=== PATIENT | female | born 1990 | race African-American/Black ===

== ENCOUNTER 2016-09-28 11:53 | Emergency (ER) | payer MEDICAID ==
[2016-09-28 13:46] LABS: BASOPHILS 0.3 % (0-2); EOSINOPHILS 2.3 % (0-7); HEMOGLOBIN 13.8 g/dL (12-16); IMMATURE GRANULOCYTES 0.4 % (0-5); LYMPHOCYTES 17.2 % (15-50); MCH 30.9 pg (26.0-34.0); MCHC 33.7 g/dL (31.0-37.0); MCV 91.7 fL (80.0-100.0); MEAN PLATELET VOLUME 10.5 fL (7.4-10.4); MONOCYTES 8.9 % (2-11); NEUTROPHILS 70.9 % (40-80); PLATELET COUNT 271 10x3/uL (130-400); RBC 4.47 10x6/uL (4.00-5.40); RDW 13.6 % (11.5-14.5); WBC 12.2 10x3/uL (4.8-10.8)
[2016-09-28 14:14] LABS: APPEARANCE CLEAR (CLEAR); BILIRUBIN NEGATIVE (NEGATIVE); COLOR YELLOW (YELLOW); GLUCOSE NEGATIVE (NEGATIVE); KETONE NEGATIVE (NEGATIVE); LEUKOCYTE ESTERASE TRACE (NEGATIVE); NITRITE NEGATIVE (NEGATIVE); PROTEIN NEGATIVE (NEGATIVE); SPECIFIC GRAVITY 1.015 (1.005-1.020); UROBILINOGEN NORMAL (NORMAL)
[2016-09-28 14:15] LABS: BACTERIA FEW /hpf (NONE SEEN); EPITHELIAL CELLS 0-5 /hpf (0-5); MUCUS >1+ /lpf (NONE SEEN); WHITE CELLS - URINE 0-5 /hpf (0-5)
== END 2016-09-28 14:48 | disposition left against medical advice (07) ==
LOC: D.ER 11:53
PROVIDERS: Emergency Medicine
DX: R09.89 Other specified symptoms and signs involving the circulatory and respiratory systems (principal); I10 Essential (primary) hypertension

== ENCOUNTER 2017-06-23 08:46 | Emergency (ER) | payer MEDICAID ==
[2017-06-23 09:25] LABS: HCG URINE NEGATIVE (NEGATIVE)
[2017-06-23 09:30] LABS: APPEARANCE HAZY (CLEAR); BILIRUBIN NEGATIVE (NEGATIVE); COLOR YELLOW (YELLOW); GLUCOSE NEGATIVE (NEGATIVE); KETONE NEGATIVE (NEGATIVE); NITRITE NEGATIVE (NEGATIVE); PROTEIN NEGATIVE (NEGATIVE); SPECIFIC GRAVITY 1.015 (1.005-1.020); UROBILINOGEN NORMAL (NORMAL)
[2017-06-23 09:33] LABS: BACTERIA FEW /hpf (NONE SEEN); EPITHELIAL CELLS 0-5 /hpf (0-5); RED CELLS - URINE 0-5 /hpf (0-5)
== END 2017-06-23 11:55 | disposition home or self-care (01) ==
LOC: D.ER 08:46
PROVIDERS: Family Medicine
DX: N76.0 Acute vaginitis (principal); B96.89 Other specified bacterial agents as the cause of diseases classified elsewhere; I10 Essential (primary) hypertension

== ENCOUNTER 2019-05-08 23:46 | Emergency (ER) | payer SELFPAY ==
[~2019-05-08] VITALS: Ht 172.7 cm; Wt 77.3 kg
[2019-05-08 23:48] VITALS: Ht 172.7 cm; Wt 77.3 kg
[2019-05-08] MEDS ORDERED: PRENATAL (23:50)
[2019-05-08] MEDS ORDERED: NORMODYNE / TR100 MG PO (23:56)
[2019-05-09 00:20] LABS: BASOPHILS 0.2 % (0-2); EOSINOPHILS 1.9 % (0-7); HEMOGLOBIN 12.1 g/dL (12-16); IMMATURE GRANULOCYTES 0.7 % (0-5); LYMPHOCYTES 14.2 % (15-50); MCH 30.9 pg (26.0-34.0); MCHC 33.6 g/dL (31.0-37.0); MCV 92.1 fL (80.0-100.0); MEAN PLATELET VOLUME 9.8 fL (7.4-10.4); MONOCYTES 5.2 % (2-11); NEUTROPHILS 77.8 % (40-80); PLATELET COUNT 301 10x3/uL (130-400); RBC 3.91 10x6/uL (4.00-5.40); WBC 17.6 10x3/uL (4.8-10.8)
[2019-05-09 00:48] LABS: ALBUMIN 2.7 g/dL (3.4-5.0); ALKALINE PHOSPHATASE 60 U/L (46-116); ALT (SGPT) 29 U/L (10-68); BILIRUBIN - TOTAL 0.37 mg/dL (0.2-1.3); CALC OSMOLALITY 273 mosm/kg (275-300); CALCIUM 8.8 mg/dL (8.5-10.1); CARBON DIOXIDE 25.3 mmol/L (21.0-32.0); CHLORIDE - SERUM 104 mmol/L (98-107); CREATININE - SERUM 0.6 mg/dL (0.6-1.3); GLUCOSE 96 mg/dL (74-106); POTASSIUM - SERUM 3.1 mmol/L (3.5-5.1); PROTEIN - SERUM 7.1 g/dL (6.4-8.2); SODIUM 138 mmol/L (136-145); UREA NITROGEN 7 mg/dL (7-18); eGFR NON AFRICAN AMERICAN > 90 mL/min (90-120)
[2019-05-09 00:50] LABS: APPEARANCE CLEAR (CLEAR); BILIRUBIN NEGATIVE (NEGATIVE); COLOR YELLOW (YELLOW); GLUCOSE NEGATIVE (NEGATIVE); KETONE SMALL mg/dL (NEGATIVE); NITRITE NEGATIVE (NEGATIVE); PROTEIN NEGATIVE (NEGATIVE); RED CELLS - URINE 0-5 /hpf (0-5); SPECIFIC GRAVITY 1.015 (1.005-1.020); UROBILINOGEN NORMAL (NORMAL); WHITE CELLS - URINE 0-5 /hpf (NEGATIVE)
[2019-05-09] MEDS ORDERED: GUAIFEN-CODEINE10 ML PO (00:57)
[2019-05-09] MEDS ORDERED: K-DUR20 MEQ PO (01:18)
[2019-05-09 01:57] VITALS: BP 123/82
== END 2019-05-09 01:20 | disposition home or self-care (01) ==
LOC: D.ER 23:46
PROVIDERS: Emergency Medicine
DX: O16.2 Unspecified maternal hypertension, second trimester (principal); Z3A.00 Weeks of gestation of pregnancy not specified; J06.9 Acute upper respiratory infection, unspecified; R05 Cough; E87.6 Hypokalemia

== ENCOUNTER 2019-07-30 14:02 | Outpatient (CLI) | payer MEDICAID ==
[2019-05-08 23:48] VITALS: BMI 25.9
[~2019-07-30 14:02] MED LIST: GUAIFEN-CODEINE10 ML PO; K-DUR20 MEQ PO; NORMODYNE / TR100 MG PO; PRENATAL
== END 2019-07-30 16:20 | disposition home or self-care (01) ==
LOC: D.LDO 14:02
PROVIDERS: ATTEND Student in an Organized Health Care Education/Training Program
DX: O16.9 Unspecified maternal hypertension, unspecified trimester (principal)

== ENCOUNTER 2019-08-03 08:39 | Outpatient (CLI) | payer MEDICAID ==
[2019-05-08 23:48] VITALS: BMI 25.9
[2019-08-03 09:41] LABS: BILIRUBIN NEGATIVE (NEGATIVE); GLUCOSE NEGATIVE (NEGATIVE); KETONE NEGATIVE (NEGATIVE); NITRITE NEGATIVE (NEGATIVE); UROBILINOGEN NORMAL (NORMAL)
[2019-08-03 09:42] LABS: BACTERIA MODERATE /hpf (NEGATIVE); EPITHELIAL CELLS 0-5 /hpf (0-5); RED CELLS - URINE 0-5 /hpf (0-5)
== END 2019-08-03 11:30 | disposition home or self-care (01) ==
LOC: D.LDO 08:39
PROVIDERS: ATTEND Student in an Organized Health Care Education/Training Program
DX: O26.893 Other specified pregnancy related conditions, third trimester (principal); R03.0 Elevated blood-pressure reading, without diagnosis of hypertension; Z3A.34 34 weeks gestation of pregnancy

== ENCOUNTER 2019-08-06 08:40 | Outpatient (CLI) | payer MEDICAID ==
[2019-05-08 23:48] VITALS: BMI 25.9
== END 2019-08-06 09:20 | disposition home or self-care (01) ==
LOC: D.LDO 08:40
PROVIDERS: ATTEND Student in an Organized Health Care Education/Training Program
DX: O16.9 Unspecified maternal hypertension, unspecified trimester (principal)

== ENCOUNTER → 2019-08-10 11:29 | Outpatient (CLI) | payer MEDICAID ==
[2019-05-08 23:48] VITALS: BMI 25.9
== END | disposition home or self-care (01) ==
LOC: D.LDO 11:29
PROVIDERS: ATTEND Student in an Organized Health Care Education/Training Program
DX: O10.919 Unspecified pre-existing hypertension complicating pregnancy, unspecified trimester (principal)

== ENCOUNTER → 2019-08-12 14:18 | Outpatient (CLI) | payer MEDICAID ==
[2019-05-08 23:48] VITALS: BMI 25.9
[2019-08-12 15:18] LABS: BILIRUBIN NEGATIVE (NEGATIVE); GLUCOSE NEGATIVE (NEGATIVE); KETONE NEGATIVE (NEGATIVE); NITRITE NEGATIVE (NEGATIVE); SPECIFIC GRAVITY 1.015 (1.005-1.020); UDS - AMPHET NEGATIVE QUAL (NEGATIVE); UDS - BARB NEGATIVE QUAL (NEGATIVE); UDS - BENZO NEGATIVE QUAL (NEGATIVE); UDS - COCAINE NEGATIVE QUAL (NEGATIVE); UDS - OPIATE NEGATIVE QUAL (NEGATIVE); UDS - PCP NEGATIVE QUAL (NEGATIVE); UDS - THC NEGATIVE QUAL (NEGATIVE); UROBILINOGEN NORMAL (NORMAL)
[2019-08-12 15:27] LABS: BACTERIA MODERATE /hpf (NEGATIVE); EPITHELIAL CELLS 0-5 /hpf (0-5); RED CELLS - URINE OCC /hpf (0-5); WHITE CELLS - URINE 0-5 /hpf (NEGATIVE)
== END | disposition home or self-care (01) ==
LOC: D.LDO 14:18
PROVIDERS: Obstetrics & Gynecology; ATTEND Student in an Organized Health Care Education/Training Program
DX: O47.9 False labor, unspecified (principal)

== ENCOUNTER 2019-08-21 13:13 | Outpatient (CLI) | payer MEDICAID ==
[2019-05-08 23:48] VITALS: BMI 25.9
== END 2019-08-21 13:52 | disposition home or self-care (01) ==
LOC: D.LDO 13:13
PROVIDERS: ATTEND Student in an Organized Health Care Education/Training Program
DX: O16.9 Unspecified maternal hypertension, unspecified trimester (principal)

== ENCOUNTER 2019-08-24 12:24 | Outpatient (CLI) | payer MEDICAID ==
[2019-05-08 23:48] VITALS: BMI 25.9
== END 2019-08-24 13:05 | disposition home or self-care (01) ==
LOC: D.LDO 12:24
PROVIDERS: ATTEND Student in an Organized Health Care Education/Training Program
DX: O10.919 Unspecified pre-existing hypertension complicating pregnancy, unspecified trimester (principal)

== ENCOUNTER 2019-08-27 09:07 | Outpatient (CLI) | payer MEDICAID ==
[2019-05-08 23:48] VITALS: BMI 25.9
== END 2019-08-27 09:23 | disposition home or self-care (01) ==
LOC: D.LDO 09:07
PROVIDERS: ATTEND Student in an Organized Health Care Education/Training Program
DX: O26.893 Other specified pregnancy related conditions, third trimester (principal); Z3A.37 37 weeks gestation of pregnancy

== ENCOUNTER 2019-08-31 09:55 | Outpatient (CLI) | payer MEDICAID ==
[2019-05-08 23:48] VITALS: BMI 25.9
== END 2019-08-31 15:27 | disposition home or self-care (01) ==
LOC: D.LDO 09:55
PROVIDERS: ATTEND Obstetrics & Gynecology
DX: O16.3 Unspecified maternal hypertension, third trimester (principal); Z3A.38 38 weeks gestation of pregnancy

== ENCOUNTER 2019-09-03 11:48 | Outpatient (CLI) | payer MEDICAID ==
[2019-05-08 23:48] VITALS: BMI 25.9
[2019-09-07 06:01] VITALS: BMI 28.9
== END 2019-09-03 12:24 | disposition home or self-care (01) ==
LOC: D.LDO 11:48
PROVIDERS: ATTEND Student in an Organized Health Care Education/Training Program
DX: O16.3 Unspecified maternal hypertension, third trimester (principal); Z3A.38 38 weeks gestation of pregnancy

== ENCOUNTER 2019-09-07 05:22 | Inpatient (IN) | payer MEDICAID ==
[~2019-09-07] VITALS: Ht 172.7 cm; Wt 86.4 kg
[2019-09-07 06:01] VITALS: BP 136/86; Ht 172.7 cm; Wt 86.4 kg
[2019-09-07 06:37] LABS: UDS - AMPHET NEGATIVE QUAL (NEGATIVE); UDS - BARB NEGATIVE QUAL (NEGATIVE); UDS - BENZO NEGATIVE QUAL (NEGATIVE); UDS - COCAINE NEGATIVE QUAL (NEGATIVE); UDS - OPIATE NEGATIVE QUAL (NEGATIVE); UDS - PCP NEGATIVE QUAL (NEGATIVE); UDS - THC NEGATIVE QUAL (NEGATIVE)
[2019-09-07 06:45] LABS: HEMATOCRIT 35.7 % (36.0-48.0); HEMOGLOBIN 11.6 g/dL (12-16); MCHC 32.5 g/dL (31.0-37.0); MCV 92.2 fL (80.0-100.0); MEAN PLATELET VOLUME 9.5 fL (7.4-10.4); RBC 3.87 10x6/uL (4.00-5.40); RDW 13.7 % (11.5-14.5); WBC 23.1 10x3/uL (4.8-10.8)
[2019-09-07 11:30] LABS: SPECIFIC GRAVITY 1.015 (1.005-1.020)
[2019-09-07 11:31] LABS: BACTERIA MODERATE /hpf (NEGATIVE); BILIRUBIN NEGATIVE (NEGATIVE); EPITHELIAL CELLS 0-5 /hpf (0-5); GLUCOSE NEGATIVE (NEGATIVE); KETONE NEGATIVE (NEGATIVE); NITRITE NEGATIVE (NEGATIVE); UROBILINOGEN NORMAL (NORMAL)
--- NOTE | 2019-09-07 21:12 | NUR ---
TRANSFERED TO POST ROOM, 1278. ORIENTED TO ROOM AND SETTLED IN, BABY ITEMS AT BEDSIDE, BABY PLACED IN MOTHERS ARMS, SLEEPING, PATIENT DENIES NEEDS, DENIES PAIN OR DISCOMFORTS
--- NOTE | 2019-09-07 22:28 | NUR ---
c/o cramping, motrin 600mg po given for discomfort
--- NOTE | 2019-09-07 22:58 | NUR ---
up to bathroom, voiding without difficulty, voiding #2 since delivery
--- NOTE | 2019-09-08 00:30 | NUR ---
sleeping, request baby be taken to nursery for bath and feeding. IV saline locked, no redness, no tenderness, flushes easily. FF/ML/U LOCHIA SM RUBRA, Denies needs
[2019-09-08 00:36] VITALS: BP 121/73
--- NOTE | 2019-09-08 01:25 | NUR ---
Resting with eyes closed, ST up x 2 and call light in reach
--- NOTE | 2019-09-08 02:25 | NUR ---
up to bathroom, jd care, pads and under pad changed
--- NOTE | 2019-09-08 03:30 | NUR ---
resting with eyes closed, ST up x2 and call light in reach, night light on
[2019-09-08 04:36] VITALS: BP 141/84
--- NOTE | 2019-09-08 04:37 | NUR ---
feeding baby, denies needs, denies discomfort at this time, assisted with bed controls
--- NOTE | 2019-09-08 06:04 | NUR ---
up holding baby, talking to baby and bonding well. voiding without difficulty, fundus firm, midline at U and small rubra lochia, Denies needs
[2019-09-08 06:08] LABS: RAPID PLASMA REAGIN Non Reactive (Non Reactive)
[2019-09-08 07:01] LABS: HEMATOCRIT 35.7 % (36.0-48.0); HEMOGLOBIN 11.7 g/dL (12-16); MCH 30.4 pg (26.0-34.0); MCHC 32.8 g/dL (31.0-37.0); MCV 92.7 fL (80.0-100.0); MEAN PLATELET VOLUME 9.5 fL (7.4-10.4); PLATELET COUNT 308 10x3/uL (130-400); RBC 3.85 10x6/uL (4.00-5.40); RDW 13.7 % (11.5-14.5); WBC 21.5 10x3/uL (4.8-10.8)
[2019-09-08 07:09] VITALS: BP 136/86
--- NOTE | 2019-09-08 07:31 | NUR ---
ASSESSMENT DONE. SITTING UP IN BED HOLDING . DENIES NEEDS- DENIES PAIN. STATES WOULD LIKE DR SPENCER. FUNDUS UU/FIRM- SCANT LOCHIA NOTED ON PAD.
--- NOTE | 2019-09-08 08:30 | NUR ---
DR. MAYFIELD ON UNIT, TO PT'S ROOM FOR AM ROUNDING.
--- NOTE | 2019-09-08 08:40 | NUR ---
PT CALLS OUT LOG SAWYER LIGHT, TO ROOM, PT IS SITTING UP IN THE BED, HOLDING INFANT, FACETIMING. PT REQUESTS THAT DIMMER LIGHTS BE TURNED BRIGHTER, DONE. DENIES ALL OTHER NEEDS. SRUP X2, CALL LIGHT AND PHONE WITHIN REACH.
--- NOTE | 2019-09-08 10:15 | NUR ---
PT CALLS OUT SUPERVISOR TYPE PHOTOGRAPHY LIGHT, TO ROOM. PT IS SITTING UP IN THE BED, TENDING TO INFANT. PT STATES "I CAN'T WORK WITH THIS THING IN MY HAND, CAN YOU TAKE THIS IV OUT?" IV TO LEFT HAND DC'D WITH CATH INTACT. PT ANEESH WELL. SRUP X2, CALL LIGHT AND PHONE WITHIN REACH. PT REQUESTS INFORMATION ON BABY'S DISCHARGE PLANNING, PHONE # TO NSY ([phone]) PROVIDED TO PT. PT DENIES ALL OTHER NEEDS AT THIS TIME.
[2019-09-08 11:00] LABS: LYMPHOCYTES 13 % (15-50); MONOCYTES 5 % (2-11); NEUTROPHILS 80 % (40-80); PLATELET ESTIMATE NORMAL; ROULEAUX OCC
[2019-09-08 14:04] VITALS: BP 132/69
--- NOTE | 2019-09-08 14:07 | NUR ---
rings call light- requesting medication for cramping -rates pain a 5 on scale of 0-10.
--- NOTE | 2019-09-08 15:50 | NUR ---
dr acosta calls unit. states that pt will be able to have btl in 6 weeks. also states that pt may room in or stay to be discharged home with infant tomorrow. pt states that she wants to stay as inpatient and discharge home with . pt states that cramping is better.
--- NOTE | 2019-09-08 18:40 | NUR ---
pt rings call light- requesting something for cramps besides motrin. phoned dr birmingham- new orders received.
--- NOTE | 2019-09-08 19:03 | NUR ---
TORADOL 30 MG IM IN LEFT GM, TOLERATED WELL RATES PAIN 10/10 FOR PERINEAL DISCOMFORT AND CRAMPING
[2019-09-08 19:45] VITALS: BP 136/90
--- NOTE | 2019-09-08 20:30 | NUR ---
SANDWICH TRAY PROVIDED WITH FRUIT AND PUDDING, BABY SWADDLED AND PLACED IN CRIB AT MOTHERS BEDSIDE, DENIES NEEDS, SR UP X2 AND CALL LIGHT IN REACH, DENIES NEEDS
--- NOTE | 2019-09-08 21:15 | NUR ---
SITTIN UP IN BED FEEDING BABY AND WATCHING TV, DENIES NEEDS, CALL LIGHT IN REACH ST UP X2
--- NOTE | 2019-09-08 22:04 | NUR ---
EATING BEDTIME SNACK, DENIES NEEDS, FUNDUS FIRM, ML, -1 LOCHIA SMALL RUBRA, RIGOBERTO SUPPLIES REPLENISHED
--- NOTE | 2019-09-08 23:01 | NUR ---
AWAKE SITTING UP IN BED WATCHING PROGRAM ON PHONE, DENIES NEEDS
--- NOTE | 2019-09-09 00:05 | NUR ---
WATCHING TV, BABY IN CRIB AT BEDSIDE, DENIES NEEDS
--- NOTE | 2019-09-09 01:00 | NUR ---
AWAKE FEEDING BABY, SCHEDULED TORADOL GIVEN FOR PAIN SCALE 5/10 CALL LIGHT IN REACH, DENIES NEEDS AT THIS TIME
[2019-09-09 01:03] VITALS: BP 137/87
--- NOTE | 2019-09-09 02:01 | NUR ---
RESTING WITH MASK COVERING EYES, NIGHT LIGHT ON, SR UP X2 AND CALL LIGHT IN REACH
--- NOTE | 2019-09-09 03:05 | NUR ---
RESTING, DENIES NEEDS
--- NOTE | 2019-09-09 04:00 | NUR ---
SLEEPING, SR UP X2 AND CALL LIGHT IN REACH
--- NOTE | 2019-09-09 05:05 | NUR ---
resting, denies needs
--- NOTE | 2019-09-09 06:00 | NUR ---
RESTING WELL, TORADOL HAS CONTROLLED PAIN THIS EVENING, BONDING WELL WITH BABY, NO SIGNS OF DISTRESS
--- NOTE | 2019-09-09 06:45 | NUR ---
ICE WATER PROVIDED PER PT REQUEST.
[2019-09-09 07:26] VITALS: BP 138/87
--- NOTE | 2019-09-09 07:29 | NUR ---
assessment done. toradol given. sitting up in bed holding infant. states that has pain "in my butt" when coughs. denies cramping at this time. states has shower supplies. denies needs.
--- NOTE | 2019-09-09 09:00 | NUR ---
resting in bed- no requests.
--- NOTE | 2019-09-09 11:00 | NUR ---
pt states will shower when is ready- denies needs.
--- NOTE | 2019-09-09 13:05 | NUR ---
report to daphne estrada rn.
--- NOTE | 2019-09-09 14:18 | NUR ---
PT UP TO SHOWER, PROVIDED WITH REQUESTED ITEMS AND TOWELS. UNDERSTANDS EMERGENCY CALL LIGHT IF ASSISTANCE/NURSE IS NEEDED.
--- NOTE | 2019-09-09 17:01 | NUR ---
VERBAL AND WRITTEN DISCHARGE GONE OVER BY Deyanira BARTON RN. PT UNDERSTANDS SHE CAN TAKE IBUPROFEN FOR POST DELIVERY PAIN CONTROL. DENIES ANY QUESTIONS OR CONCERNS AT THIS TIME. AWAITING DISCHARGE AT THIS TIME.
--- NOTE | 2019-09-09 17:45 | NUR ---
PT TAKEN OUT WITH INFANT SECURED IN CARRIER HOME WITH FAMILY BY PRIVATE CAR.
== END 2019-09-09 17:45 | disposition home or self-care (01) | DRG 807 ==
LOC: D.LD 05:22
PROVIDERS: ADMIT Student in an Organized Health Care Education/Training Program; ATTEND Student in an Organized Health Care Education/Training Program
PROC: 10E0XZZ Delivery of Products of Conception, External Approach (ICD-10-PCS; principal; 2019-09-07)
DX: O99.824 Streptococcus B carrier state complicating childbirth (principal); Z37.0 Single live birth; Z3A.39 39 weeks gestation of pregnancy; O10.92 Unspecified pre-existing hypertension complicating childbirth

== ENCOUNTER 2020-01-21 09:53 | Emergency (ER) | payer MEDICAID ==
[~2020-01-21] VITALS: Ht 172.7 cm; Wt 86.4 kg
[2020-01-21 10:03] VITALS: Ht 172.7 cm; Wt 86.4 kg
[2020-01-21 10:41] LABS: HCG URINE POSITIVE (NEGATIVE)
[2020-01-21] MEDS ORDERED: FLAGYL500 MG PO (10:48)
[2020-01-21 10:59] LABS: BACTERIA MODERATE /hpf (NEGATIVE); BILIRUBIN NEGATIVE (NEGATIVE); EPITHELIAL CELLS 0-5 /hpf (0-5); KETONE NEGATIVE (NEGATIVE); NITRITE NEGATIVE (NEGATIVE); RED CELLS - URINE 0-5 /hpf (0-5); UROBILINOGEN NORMAL (NORMAL)
[2020-01-21] MEDS ORDERED: MACROBID100 MG PO (11:01)
[2020-01-21 11:28] VITALS: BP 124/62
== END 2020-01-21 11:28 | disposition home or self-care (01) ==
LOC: D.ER 09:53
PROVIDERS: Emergency Medicine
DX: O23.40 Unspecified infection of urinary tract in pregnancy, unspecified trimester (principal); Z3A.00 Weeks of gestation of pregnancy not specified; N76.0 Acute vaginitis; Z20.2 Contact with and (suspected) exposure to infections with a predominantly sexual mode of transmission; A59.01 Trichomonal vulvovaginitis; O16.9 Unspecified maternal hypertension, unspecified trimester

== ENCOUNTER 2020-07-21 10:10 | Outpatient (CLI) | payer MEDICAID ==
[2020-01-21 10:03] VITALS: BMI 28.9
[~2020-07-21 10:10] MED LIST changes: +FLAGYL500 MG PO; +MACROBID100 MG PO
[2020-07-21 11:42] LABS: HEMATOCRIT 36.2 % (36.0-48.0); HEMOGLOBIN 12.1 g/dL (12-16); LYMPHOCYTES 19.5 % (15-50); MCH 30.8 pg (26.0-34.0); MCHC 33.4 g/dL (31.0-37.0); MCV 92.1 fL (80.0-100.0); MEAN PLATELET VOLUME 9.4 fL (7.4-10.4); NEUTROPHILS 75.9 % (40-80); PLATELET COUNT 299 10x3/uL (130-400); RBC 3.93 10x6/uL (4.00-5.40); RDW 12.8 % (11.5-14.5); WBC 16.6 10x3/uL (4.8-10.8)
[2020-07-21 11:54] LABS: BILIRUBIN NEGATIVE (NEGATIVE); CREATININE - URINE 209.2 mg/dL (30-125); KETONE NEGATIVE (NEGATIVE); NITRITE NEGATIVE (NEGATIVE); PRO/CRE RATIO URINE 0.1 mg/g; PROTEIN - URINE 30.4 mg/dL (0.0-11.9); UROBILINOGEN NORMAL mg/dL (< 2); WHITE CELLS - URINE 0-5 HPF (0-4)
[2020-07-21 11:55] LABS: BACTERIA FEW HPF (NONE SEEN); SQUAMOUS EPITHELIAL 0-5 HPF (0-4)
[2020-07-21 12:11] LABS: CALC OSMOLALITY 272 mosm/kg (275-300); CALCIUM 8.6 mg/dL (8.5-10.1); CARBON DIOXIDE 26.9 mmol/L (21.0-32.0); CHLORIDE - SERUM 103 mmol/L (98-107); CREATININE - SERUM 0.7 mg/dL (0.6-1.3); GLUCOSE 77 mg/dL (74-106); SODIUM 138 mmol/L (136-145); UREA NITROGEN 6 mg/dL (7-18); eGFR NON AFRICAN AMERICAN > 90 mL/min (90-120)
[2020-07-21 12:15] LABS: POTASSIUM - SERUM 2.9 mmol/L (3.5-5.1)
[2020-07-21 12:18] LABS: ALBUMIN 2.7 g/dL (3.4-5.0); ALKALINE PHOSPHATASE 91 U/L (30-120); ALT (SGPT) 23 U/L (10-68); BILIRUBIN - TOTAL 0.33 mg/dL (0.2-1.3); LDH 174 U/L (81-234); URIC ACID 3.5 mg/dL (2.6-7.2)
[2020-07-22 09:47] LABS: MAGNESIUM - SERUM 1.5 mg/dL (1.8-2.4)
[2020-07-22 09:49] LABS: POTASSIUM - SERUM 2.7 mmol/L (3.5-5.1)
== END 2020-07-22 16:45 | disposition home or self-care (01) ==
LOC: D.LDO 10:10 → D.LD 22:07 → D.LDO 07-22 16:45
PROVIDERS: ATTEND Student in an Organized Health Care Education/Training Program
DX: O36.5990 Maternal care for other known or suspected poor fetal growth, unspecified trimester, not applicable or unspecified (principal)

== ENCOUNTER 2020-08-05 06:24 | Inpatient (IN) | payer MEDICAID ==
[2020-08-05] VITALS (8 sets, daily range): BP systolic 137–177; BP diastolic 81–107; BMI 40.4
[~2020-08-05] VITALS: Ht 142.2 cm; Wt 81.6 kg
[2020-08-05 08:53] LABS: UDS - AMPHET NEGATIVE QUAL (NEGATIVE); UDS - BARB NEGATIVE QUAL (NEGATIVE); UDS - BENZO NEGATIVE QUAL (NEGATIVE); UDS - COCAINE NEGATIVE QUAL (NEGATIVE); UDS - OPIATE NEGATIVE QUAL (NEGATIVE); UDS - PCP NEGATIVE QUAL (NEGATIVE); UDS - THC POSITIVE QUAL (NEGATIVE)
[2020-08-05 09:57] LABS: HEMATOCRIT 35.6 % (36.0-48.0); HEMOGLOBIN 11.8 g/dL (12-16); MCH 30.5 pg (26.0-34.0); MCHC 33.1 g/dL (31.0-37.0); MEAN PLATELET VOLUME 10.2 fL (7.4-10.4); RBC 3.87 10x6/uL (4.00-5.40); RDW 13.5 % (11.5-14.5); WBC 13.1 10x3/uL (4.8-10.8)
--- NOTE | 2020-08-05 19:03 | NUR ---
TRUE STAT SECTION. PATIENT ALREADY IN ROOM WHEN I ARRIVED. COUNT NOT ABLE TO BE OBTAINED OTHER THAN SOFT COUNT OF LAPS. FINAL X RAY TAKEN CONFIRMED BY PHYSICIAN TO BE CLEAR OF ANY SURGICAL ITEMS LEFT BEHIND. LABOR AND CONTACT LENS MOLDER AGUSTO GONZALEZ HANDLED CORD BLOOD. DONNELL VILLA HANDLED SPECIMENS. STERILITY IN QUESTION DUE TO DANGER OF LOSS OF BABY AND MOM. EMERGENCY HYSTERECTOMY ESTABLISHED BY PHYSICIAN TO BE NECESSARY TO SAVE MOTHERS LIFE. DR LAWRENCE AND DR MCDONALD ALSO CALLED INTO ASSIST.
[2020-08-05 19:12] LABS: BASOPHILS 0.1 % (0-2); EOSINOPHILS 1.4 % (0-7); HEMATOCRIT 28.8 % (36.0-48.0); HEMOGLOBIN 9.8 g/dL (12-16); IMMATURE GRANULOCYTES 0.5 % (0-5); LYMPHOCYTE ABS# 3.35 10x3/uL (1.18-3.74); LYMPHOCYTES 16.9 % (15-50); MCH 30.8 pg (26.0-34.0); MCV 90.6 fL (80.0-100.0); MEAN PLATELET VOLUME 9.9 fL (7.4-10.4); MONOCYTES 4.3 % (2-11); NEUTROPHIL ABS# 15.23 10x3/uL (1.56-6.13); NEUTROPHILS 76.8 % (40-80); RBC 3.18 10x6/uL (4.00-5.40); RDW 13.4 % (11.5-14.5)
[2020-08-05 19:13] LABS: PLATELET COUNT 195 10x3/uL (130-400); WBC 19.8 10x3/uL (4.8-10.8)
[2020-08-05 19:15] LABS: ALBUMIN 1.4 g/dL (3.4-5.0); ALKALINE PHOSPHATASE 56 U/L (30-120); ALT (SGPT) 13 U/L (10-68); BILIRUBIN - TOTAL 0.54 mg/dL (0.2-1.3); CALC OSMOLALITY 271 mosm/kg (275-300); CARBON DIOXIDE 18.7 mmol/L (21.0-32.0); CHLORIDE - SERUM 112 mmol/L (98-107); CREATININE - SERUM 0.4 mg/dL (0.6-1.3); GLUCOSE 79 mg/dL (74-106); POTASSIUM - SERUM 3.1 mmol/L (3.5-5.1); PROTEIN - SERUM 3.8 g/dL (6.4-8.2); SODIUM 138 mmol/L (136-145); UREA NITROGEN 5 mg/dL (7-18); eGFR NON AFRICAN AMERICAN > 90 mL/min (90-120)
--- NOTE | 2020-08-05 19:20 | NUR ---
lab staff notified of critical calcium level of 6.0, reported to dr acosta who is at nursing' station, no new orders received at this time.
[2020-08-05 19:27] LABS: APTT 25.9 SECONDS (22.8-39.4); INR 1.21 (0.85-1.17); PROTIME 14.2 SECONDS (11.6-15.0)
--- NOTE | 2020-08-05 19:45 | NUR ---
PT. IN HIGH FOWLERS POSITION UPON ENTERING ROOM. 16 FR. CA CATH INTACT AND DRAINING APPROPRIATELY. ABDOMINAL DRESSING C/D/I OVER BIKINI LINE INCISION WITH BRETT. VITALS AND ASSESSMENT COMPLETED. SEE FLOWSHEET. PT. WITH 20 G. SALINE LOCK NOTED IN LEFT HAND AND 18 G. IV IN LEFT HAND INFUSING NS AT KVO. PLACED NS TO IVAC AT 75 ML/HR. CALCIUM GLUCONATE 1GM ON IVPB AT 25 ML/HR ORDERED TO INFUSE OVER 2 HOURS. PT. AWAKE, ALERT, AND ORIENTED X3. DISCUSSED PLAN OF CARE WITH PT. REGARDING MEDICATIONS ORDERED, LABS ORDERED, NPO OF RIGHT NOW AND CT OF ABDOMEN ORDERED WITH CONTRAST NOW. PT. REPORTS "IM TRYING TO DRINK IT BUT ITS GOD AWFUL AND I DON'T WANT TO GET SICK". INSTRUCTED PT. TO JUST SIP SLOWLY AT THIS TIME. SCD'S PLACED AND ON PER ORDERS. VERY LITTLE BLEEDING NOTED ON RIGOBERTO PAD. PT. UNABLE TO MOVE BILATERAL LOWER EXTREMITIES DUE TO EPIDURAL BOLUSED FOR STAT SECTION DUE TO PROLAPSED CORD. RESP. ARE EVEN AND UNLABORED. BREATH SOUNDS CLEAR AT THIS TIME. BOWEL SOUNDS HYPOACTIVE X 4 AND PT. REPORTS PASSING GAS. SIDE RAILS UP X 2. CALL LIGHT WITHIN REACH. PT. SHAKING UNCONTROLLABLY AND REPORTS "IM FREEZING". 2 MORE WARM BLANKETS PROVIDED. STILL UNABLE TO OBTAIN TEMP. AT THIS TIME. WILL CONT. TO MONITOR.
--- NOTE | 2020-08-05 20:20 | NUR ---
pt transferred to radiology for ct of abdomen via pt bed per radiology staff.
--- NOTE | 2020-08-05 20:43 | NUR ---
PT. BACK TO ROOM VIA BED FROM CT OF ABDOMEN.
--- NOTE | 2020-08-05 21:10 | NUR ---
LAB NOTIFIED OF TIMED LAB DRAW NEEDED PER MD ORDERS.
--- NOTE | 2020-08-05 21:25 | NUR ---
REPORT OF CT RESULTS CALLED TO DR. MAYFIELD.
--- NOTE | 2020-08-05 21:40 | NUR ---
PT C/O ITCHING OF LEFT HAND, NOTED HIVES SURROUNDING PIV SITE AND EXTENDING TO WRIST. HEALTH SPA MANAGER MORPHINE DISCONTINUED. Fab ANNE RN NOTIFIED DR MAYFIELD WHO GAVE ORDERS; DR MAYFIELD PHONES BACK AND SPEAKS TO THIS RN WITH ADDITIONAL ORDERS. -WILL GIVE BENADRYL 25MG SIVP DILUTED IN 10 ML NS TO LEFT HAND PIV SITE PER ORDERS RECEIVED.
--- NOTE | 2020-08-05 21:46 | NUR ---
BENADRYL 50 MG ADMINISTERED SIVP IN 9 MLS NORMAL SALINE THROUGH RIGHT HAND IV WITH NS BEING INFUSED AT 75 ML/HR.
[2020-08-05 22:11] LABS: BASOPHILS 0.2 % (0-2); EOSINOPHILS 0.7 % (0-7); HEMATOCRIT 32.3 % (36.0-48.0); HEMOGLOBIN 10.8 g/dL (12-16); IMMATURE GRANULOCYTES 0.4 % (0-5); LYMPHOCYTE ABS# 2.19 10x3/uL (1.18-3.74); LYMPHOCYTES 11.3 % (15-50); MCH 30.3 pg (26.0-34.0); MCHC 33.4 g/dL (31.0-37.0); MCV 90.7 fL (80.0-100.0); MEAN PLATELET VOLUME 9.7 fL (7.4-10.4); NEUTROPHIL ABS# 15.85 10x3/uL (1.56-6.13); NEUTROPHILS 81.4 % (40-80); PLATELET COUNT 199 10x3/uL (130-400); RBC 3.56 10x6/uL (4.00-5.40); RDW 13.6 % (11.5-14.5); WBC 19.4 10x3/uL (4.8-10.8)
[2020-08-05 22:23] LABS: APTT 26.2 SECONDS (22.8-39.4); INR 1.22 (0.85-1.17); PROTIME 14.3 SECONDS (11.6-15.0)
--- NOTE | 2020-08-05 22:30 | NUR ---
REPORT CALLED TO DR. MAYFIELD WITH LAB RESULTS. ORDERS REC.
--- NOTE | 2020-08-05 23:35 | NUR ---
PT. PROVIDED WITH CHICKEN BROTH REQUESTED. CA WITH 280 MLS OF DARK YELLOW URINE EMPTIED TO BAG FROM CHAMBER. PT. DOZES ON AND OFF WHILE SPEAKING WITH HER. GABAPENTIN 100 MG ADMINISTERED ORALLY PER MD ORDERS. PT. CONTINUES TO REPORT PAIN IS AT "10" ON 0-10 SCALE BUT IS SLEEPING UPON ENTERING ROOM. WILL CONT. TO MONITOR.
[2020-08-06 00:47] LABS: BASOPHILS 0.1 % (0-2); EOSINOPHILS 0.6 % (0-7); HEMOGLOBIN 10.9 g/dL (12-16); IMMATURE GRANULOCYTES 0.3 % (0-5); LYMPHOCYTE ABS# 2.67 10x3/uL (1.18-3.74); MCH 30.4 pg (26.0-34.0); MCHC 34.1 g/dL (31.0-37.0); MCV 89.1 fL (80.0-100.0); MEAN PLATELET VOLUME 9.2 fL (7.4-10.4); MONOCYTES 3.4 % (2-11); NEUTROPHIL ABS# 14.39 10x3/uL (1.56-6.13); NEUTROPHILS 80.6 % (40-80); PLATELET COUNT 187 10x3/uL (130-400); RBC 3.59 10x6/uL (4.00-5.40); RDW 13.7 % (11.5-14.5); WBC 17.8 10x3/uL (4.8-10.8)
[2020-08-06 00:49] VITALS: BP 150/85
[2020-08-06 01:00] LABS: APTT 25.5 SECONDS (22.8-39.4); INR 1.16 (0.85-1.17); PROTIME 13.7 SECONDS (11.6-15.0)
--- NOTE | 2020-08-06 02:10 | NUR ---
PT. APPEARS TO BE RESTING COMFORTABLY. RESP. ARE EVEN AND UNLABORED. NO SIGNS OF DISTRESS NOTED. PT. NOT DISTURBED AT THIS TIME.
--- NOTE | 2020-08-06 04:06 | NUR ---
NEW BAG OF 0.9% NORMAL SALINE HUNG AND INFUSING AT 50 ML/HR. FLAGYL 500 MG HUNG IVPB TO RIGHT HAND IV CATH AT 100 ML/HR PER MD ORDERS. THIS IS THE 2ND DOSE OF A TOTAL OF 6 TO BE INFUSED. PT. REPORTS PAIN AT "10" ON 0-10 SCALE.
[2020-08-06 04:10] VITALS: BP 147/90
--- NOTE | 2020-08-06 05:56 | NUR ---
PT. REPORTS PAIN IS AT "5" ON 0-10 SCALE. PT. INQUIRES WHAT SHE IS TAKING FOR PAIN MEDICATION. INSTRUCTED PT. THAT SHE IS TAKING TORADOL 30 MG IV AND TRAMADOL 50 MG ORALLY. PT. INQUIRES "I DONT THINK THATS HELPING VERY MUCH". EXPLAINED TO PT. THAT I AM SURE THAT DR. MAYFIELD ORDERED THIS BECAUSE IT IS NOT AN OPIATE AND AFTER HER HIVES ON HER HAND LAST NIGHT SHE MAY BE LEARY TO TRY ANY OF THE OTHERS THAT ARE OPIATES. PT. INQUIRES REGARDING HYDROCONE AND REPORTS "MARISELA TAKEN IT BEFORE WHEN I HAD MY TEETH PULLED AND IT DIDN'T BOTHER ME". INSTRUCTED PT. THAT SHE MAY WANT TO SPEAK WITH DR. MAYFIELD ABOUT CHANGING IT WHEN SHE COMES AND MAKES ROUNDS. PT. VERBALIZES UNDERSTANDING.
[2020-08-06 06:10] LABS: RAPID PLASMA REAGIN Non Reactive (Non Reactive)
--- NOTE | 2020-08-06 06:45 | NUR ---
PT. CLEANSED WITH WARM WET WASHCLOTHES. CA CATH CARE PERFORMED. RIGOBERTO PAD, TOWELS AND PAPER CHUX CHANGED AT THIS TIME. 350 MLS URINE EMPTIED FROM CA CATH CHAMBER TO BAG. CA EMPTIED AT THIS TIME. PLACED IN MOMS ARMS PER HER REQUEST. BOTTLE PROVIDED. CALL LIGHT WITHIN REACH. SIDE RAILS UP X 2.
[2020-08-06 06:52] VITALS: Ht 142.2 cm; Wt 81.6 kg
[2020-08-06 07:30] VITALS: BP 159/101
--- NOTE | 2020-08-06 07:30 | NUR ---
PATIENT ASSESSMENT COMPLETED AT BEDSIDE. PATIENT COMPLAINS OF PAIN 12/03. PATIENT POST OP HYST. NO FUNDUS TO ASSESS. NO BLEEDING NOTED. INCISION COVERED WITH DRESSING. DRESSING CLEAN AND DRY AND INTACT. ICE PACK APPLIED FOR ADDED COMFORT. EKG LEADS REMOVED. SCD IN PLACED. REMOVED FOR SKIN TO BE ASSESSED. NORMAL SALINE INFUSING AT 50 ML/HR IN LEFT HAND AND RIGHT HAND PIV. PATIENT UPDATED ON PLAN OF CARE AT BEDSIDE. SIDE RAILS UP X2, BED IN LOW POSITION, CALL LIGHT WITHIN REACH.
--- NOTE | 2020-08-06 07:45 | NUR ---
DR. MAYFIELD AT BEDSIDE FOR PATIENT ASSESSMENT.
[2020-08-06 08:25] LABS: BASOPHILS 0.1 % (0-2); EOSINOPHILS 0.9 % (0-7); HEMATOCRIT 31.5 % (36.0-48.0); HEMOGLOBIN 10.6 g/dL (12-16); IMMATURE GRANULOCYTES 0.4 % (0-5); LYMPHOCYTE ABS# 1.96 10x3/uL (1.18-3.74); LYMPHOCYTES 16.7 % (15-50); MCH 30.1 pg (26.0-34.0); MCHC 33.7 g/dL (31.0-37.0); MCV 89.5 fL (80.0-100.0); MEAN PLATELET VOLUME 9.2 fL (7.4-10.4); MONOCYTES 5.2 % (2-11); NEUTROPHIL ABS# 9.03 10x3/uL (1.56-6.13); NEUTROPHILS 76.7 % (40-80); PLATELET COUNT 188 10x3/uL (130-400); RBC 3.52 10x6/uL (4.00-5.40); RDW 13.9 % (11.5-14.5)
[2020-08-06 08:26] LABS: WBC 11.8 10x3/uL (4.8-10.8)
--- NOTE | 2020-08-06 12:06 | NUR ---
CA REMOVED. PATIENT SALINE'D LOCKED AT THIS TIME INTERMITTENLY. PATIENT COMPLAINS OF PAIN ON RIGHT SIDE OF ABDOMEN. PLAN OF CARE DISCUSSED WITH PATIENT INCLUDING AMBULATION AFTER LUNCH AND IV ANTIBIOTICS THAT WILL STILL NEED TO BE INFUSED. PATIENT VERBALIZED UNDERSTANDING OF INFORMATION GIVEN.
--- NOTE | 2020-08-06 13:06 | NUR ---
PATIENT AMBULATED TO RESTROOM WITHOUT DIFFICULTY. PERICARE PERFORMED. PATIENT ABLE TO VOID POST CA REMOVAL. NEW GOWN AND PANTIES GIVEN TO PATIENT. RIGHT HAND PIV REMOVED. PATIENT TOLERATED WELL. BED IN LOW POSITION, SIDE RAILS UP X 2, CALL LIGHT WITHIN REACH.
[2020-08-06 13:23] VITALS: BP 150/88
--- NOTE | 2020-08-06 16:19 | MORECARE ---
CASE MANAGEMENT DISCHARGE SUMMARY PATIENT: JASMINE LEAL UNIT: [id number] ADM DATE: 08/05/20 AGE: 29 : [birth year] SEX: F ROOM/BED: D.1278 AUTHOR: CHAUNCEY BEAVER PHYSICIAN: REFERRING PHYSICIAN: PITO MAYFIELD DO DATE OF SERVICE: 08/06/20 Discharge Plan Patient Name: JASMINE LEAL Facility: [facility]:[place] : 1990 Planned Disposition: Home Anticipated Discharge Date: 08/06/20 Discharge Date: Expected LOS: 1 Initial Reviewer: [email or web address] Initial Review Date: 08/05/2020 Generated: 08/06/20 5:18 pm Comments DCP- Discharge Planning Updated by [email or web address]: Alex Craig on 08/06/20 3:[address] Patient Name: JASMINE LEAL Admission Status: Elective Accout number: [id number] Admission Date: 08-05-2020 : 1990 Admission Diagnosis: Attending: JAG Current LOS: 1 Anticipated DC Date: 08-06-2020 Planned Disposition: Home Primary Insurance: [place]ICAID [place] Discharge Planning Comments: Received consult for +UDS. COLBY met with Nursery staff and was informed that [facility] has visited patient and [facility] has already conducted a home visit. COLBY met with Jasmine ADAME ([phone]) to discuss DC needs. FOB, Jesus Damon, was absent from room and MOB stated that his involvement is minimal. BG Leal is named Tank Beltran. DEEP states that both she and her are unemployed. DEEP further stated that taking care of her children requires a great deal of her time and she is unable to work. MOB stated that she has Medicaid and that a Medicaid application has been started for Tank. CM handed DEEP a [facility] programs handout. DEEP stated she receives a considerable amount for food stamps and feels that WIC is not needed for her infant. MOB stated that she has not called for WIC appointments for either Tank or herself. COLBY reinforced the need to call for a WIC appointment and gave WIC resources handout to MOB. MOB stated that she plans to formula feed. MOB stated that she has plenty of bottles, clothes, and diapers. MOB further stated that her aunt will bring a car seat at [place]. CM was informed by nursing staff that a [facility] agent brought a bassinet to the MOB. DEEP stated that she lives in an apartment with her grandmother Florence eLal ([phone]) and the MOB's 6 other children. DEEP's other Children are Jacion, age 7, Feliciano, age 6, Mara, age 5, Melissa, age 4, Kailyn, age 3, and Lyrica, age 10 months. MOB states that her apartment has gas heat and electric air and she has smoke detectors at ceiling height installed throughout the home. MOB stated that the apartment has city water and MOB stated understanding that city tap water should not be used to mix baby formula and further stated that she knows to use distilled water. MOB stated that she does not need child rearing classes. CM gave MOB a [employer] brochure for parenting classes should she change her mind. MOB stated that she received care from the time she found out she was . MOB stated that her grease and tallow pumper is Dr. Mayfield. MOB stated that Dr. Holguin will be Tank's research rn spec. DEEP stated that her grandmother has a car that she and her aunt, Shanti ([phone]) share. MOB stated that there are no pets inside the home and no one smokes tobacco or drinks alcohol. MOB declined to discuss marijuana and her positive drug screen, stating that [facility] has already asked her questions and performed a home inspection. MOB denies any concerns about taking Angey home and denies any discharge planning needs at this time. CM will continue to follow and assist as needed with discharge planning / needs. Budget Coordinator: Alex Craig Patient Name: JASMINE LEAL Page [id number] at [id number] All edits/amendments must be made on the electronic document DICTATION DATE: 08/06/201617 INSTALLATION SUPERVISOR: MIL 08/06/201617 RPT#: [id number] [place] DATE: STATUS: ADM IN [facility] [address] [place] [address] END OF REPORT
[2020-08-06 17:40] VITALS: BP 136/70
--- NOTE | 2020-08-06 19:45 | NUR ---
REINTRODUCED SELF TO PT. NURSE TO PROVIDE CARE THIS SHIFT. DISCUSSED CONTINUED PLAN OF CARE WITH PT. AT THIS TIME TO INCLUDE MEDICATIONS ORDERED FOR PAIN RELIEF AND HOW OFTEN THOSE ARE AVAILABLE. PT. VERBALIZES UNDERSTANDING. PT. DENIES PAIN AT THIS TIME.
--- NOTE | 2020-08-06 20:19 | NUR ---
PT. REPORTS "I REALLY DONT WANT TO TAKE IT BECAUSE IT MAKES ME A LITTLE NAUSEATED BECAUSE I THINK ITS TOO STRONG". INSTRUCTED PT. I WOULD SPEAK TO DR. MAYFIELD ABOUT CHANGING HER ORDERS TO HYDROCODONE SINCE SHE SAID SHE HAS TAKEN IT BEFORE WITH NO PROBLEMS.
--- NOTE | 2020-08-06 20:23 | NUR ---
DR. MAYFIELD AT NURSES DESK AND ORDERS REC. TO CHANGE PAIN MEDICATION TO HYDROCODONE INSTEAD OF PERCOCET
[2020-08-06 20:46] VITALS: BP 144/91
--- NOTE | 2020-08-06 20:50 | NUR ---
PT. DOZING OFF TO SLEEP I ENTER THE ROOM WITH MEDICATIONS. PT. AWAKENS WITH VERBAL STIMULATION. INSTRUCTED PT. REGARDING MEDICATIONS TO TAKE AT THIS TIME. 20 G. SALINE LOCK IN LEFT HAND FLUSED WITH 10 MLS NORMAL SALINE WITH NO DIFFICULTY AND NO REPORT OF DISCOMFORT WHEN FLUSHED. VITALS AND ASSESSMENT COMPLETED. SEE FLOWSHEET. BIKINI LINE INCISION WITH BRETT IS C/D/I. BOWEL SOUNDS ACTIVE X 4. PT. REPORTS PASSING GAS BUT NO BM AT THIS TIME. RESP. ARE EVEN AND UNLABORED. BREATH SOUNDS CLEAR. PT. REPORTS USING INCENTIVE SPIROMETER INSTRUCTED. PEDAL PULSES PRESENT. PT. INSTRUCTED THAT WE WILL NEED TO PLACE SCD'S BACK ON AT THIS TIME. PT. REFUSES AT THIS TIME. ABDOMINAL BINDER BACK IN PLACE. INSTRUCTED PT. THAT SHE SHOULD NOT WEAR BINDER WHILE SLEEPING. PT. VERBALIZES UNDERSTANDING.
--- NOTE | 2020-08-06 21:51 | NUR ---
ASSISTED PT. UP TO BATHROOM TO VOID.
[2020-08-07 00:42] VITALS: BP 153/92
--- NOTE | 2020-08-07 01:16 | NUR ---
PT. STOCK PATCHER LIGHT. PT. REQUEST NURSE TO ROOM. PT. REPORTS "I NEED THE THROW UP BUCKET". PT. WITH LARGE AMOUNT OF BRIGHT YELLOW EMESIS SEVERAL TIMES. PT. REQUEST "CAN I SIT IN THE SHOWER AND LET THE WATER RUN OVER MY BACK AND BELLY". PT. REPORTS "THIS GAS IS KILLING ME". PT. DOES REPORT FEELING BETTER SINCE THROWING UP. INSTRUCTED PT. I WILL GET LINENS AND A SHOWER CHAIR AND BE RIGHT BACK.
--- NOTE | 2020-08-07 01:24 | NUR ---
ASSISTED PT. UP TO BATHROOM AFTER WRAPPING IV SO THAT SHE MAY SIT UNDER THE WATER WHILE I CHANGE HER LINENS.
--- NOTE | 2020-08-07 01:30 | NUR ---
BED LINENS CHANGED.
--- NOTE | 2020-08-07 01:34 | NUR ---
ASSISTED PT. OUT OF SHOWER AND GETTING DRESSED. NEW GOWN PLACED. RIGOBERTO PAD AND PANTIES APPLIED.
--- NOTE | 2020-08-07 01:40 | NUR ---
PT. REQUEST THAT I CONTACT MD CANVAS REPAIRER AND REQUEST SOMETHING TO HELP HER SLEEP AND WITH THE NAUSEA SHE IS HAVING.
--- NOTE | 2020-08-07 01:42 | NUR ---
REPORT CALLED TO DR. MAYFIELD OF PT.'S REQUEST FOR SOMETHING TO HELP HER SLEEP AND SOMETHING FOR NAUSEA. ORDERS REC.
--- NOTE | 2020-08-07 03:06 | NUR ---
PT. CONCRETE PAVING SUPERVISOR LIGHT AND REQUEST NURSE TO ROOM AGAIN. UPON ENTERING ROOM PT. IS REQUESTING I SIT THE HEAD OF THE BED UP. PT. GRABS EMESIS BASIN OFF OF TABLE. PT. SAT UP IN HIGH FOWLERS POSITION AND IMMEDIATELY HAS LARGE AMOUNT OF BRIGHT YELLOW EMESIS X 2. PT. PROVIDED WITH COOL WET WASHCLOTHES. BOWEL SOUNDS AUSCULTATED AGAIN AND ARE ACTIVE X 4 QUADRANTS. PT. INSTRUCTED THAT SHE MUST NOT HAVE ANY MORE CHICKEN BROTH TODAY DUE TO HER EMESIS APPEARS TO BE STRAIGHT CHICKEN BROTH. PT. VERBALIZES UNDERSTANDING.
--- NOTE | 2020-08-07 04:20 | NUR ---
PT. RESTING COMFORTABLY UPON ENTERING THE ROOM. PT. AWAKENS EASILY WITH VERBAL STIMULATION. PT. REPORTS PAIN IS AT "5" ON 0-10 SCALE. PT. MEDICATED PER MD ORDERS WITH NORCO 10/325 MG 1 TAB. PT. ONLY SIPS A LITTLE BIT OF APPLE JUICE TO TAKE MEDICATION AND REPORTS "I DONT WANT TO GET SICK AGAIN". 20 G SALINE LOCK IN LEFT HAND FLUSHED WITH 10 MLS NORMAL SALINE. FLUSHES EASILY AND WITHOUT COMPLAINT OF DISCOMFORT. FLAGYL 500 MG HUNG IVPB AT 100 ML/HR PER ORDERS. PT. DENIES ANY FURTHER NEEDS AT THIS TIME. WILL CONT. TO MONITOR.
--- NOTE | 2020-08-07 05:00 | NUR ---
PT. RESTING COMFORTABLY UPON ENTERING ROOM. NO SIGNS OF DISTRESS NOTED. RESP. ARE EVEN AND UNLABORED. PT. NOT DISTURBED AT THIS TIME.
--- NOTE | 2020-08-07 05:15 | NUR ---
PT. RESTING WITH EYES CLOSED UPON ENTERING ROOM. NO SIGNS OF DISTRESS NOTED. PT. AWAKENS WITH VERBAL STIMULATION. PT. REPORTS PAIN IS "BETTER" AND NOW RATES AT "3" ON 0-10 SCALE.
--- NOTE | 2020-08-07 05:19 | NUR ---
TORADOL 30 MG ADMINISTERED SIVP IN 8 MLS NORMAL SALINE. PT. DENIES ANY PAIN WITH IVP AND REPORTS "ITS JUST COLD". PT. DENIES ANY FURTHER NEEDS AT THIS TIME. WILL CONT. TO MONITOR.
[2020-08-07 07:20] VITALS: BP 136/90
--- NOTE | 2020-08-07 10:54 | NUR ---
PATIENT AMBULATING IN HALLWAY WITH WHEELCHAIR. PATIENT REPORTS BOWEL MOVEMENT THIS MORNING WITH PASSING OF GAS. NO ADDITIONAL NEEDS NOTED AT THIS TIME.
[2020-08-07 12:16] VITALS: BP 137/76
[2020-08-07 19:05] VITALS: BP 135/78
--- NOTE | 2020-08-07 19:05 | NUR ---
PATIENT SITTING UP IN BED HOLDING INFANT. DENIES NEEDS OR PAIN AT THIS TIME. ASSESSMENT COMPLETED, SEE FLOWSHEET.
--- NOTE | 2020-08-07 19:20 | NUR ---
PATIENTS FRIEND TO BEDSIDE TO BRING THE PT DINNER.
--- NOTE | 2020-08-07 19:36 | NUR ---
ICE PROVIDED PER PT REQUEST, TRASH REMOVED FROM ROOM ADN LINENS PICKED UP FROM BATHROOM. HOUSEKEEPING CALLED WITH NO ANSWER. WILL TRY AGAIN.
--- NOTE | 2020-08-07 20:25 | NUR ---
LAB TO BEDSIDE, PATIENT REFUSES BLOOD DRAW.
--- NOTE | 2020-08-07 20:34 | NUR ---
PT SITTING UP IN BED HOLDING . REQUESTS THAT LIGHTS BE OFF AND DIMMED. NO FURTHER NEEDS IDENTIFIED.
--- NOTE | 2020-08-07 22:20 | NUR ---
CALLED TO ROOM BY PATIENT, BOTTLE PROVIDED FOR INFANT PER REQUEST. NO FURTHER NEEDS IDENTIFIED. PT'S BED REMAINS LOW IN LOCKED POSITION, SIDE RAILS UPX2. CALL [place] AND TRAY TABLE IN REACH.
--- NOTE | 2020-08-07 22:26 | NUR ---
HOUSEKEEPING TO ROOM
--- NOTE | 2020-08-07 23:30 | NUR ---
ICE PROVIDED TO PATIENT AT THIS TIME PER REQUEST, DENIES OTHER NEEDS. WILL CONTINUE TO MONITOR.
--- NOTE | 2020-08-08 00:11 | NUR ---
PATIENT CONTINUES TO DENY BLEEDING, PT IS SITTING UP IN BED HOLDING INFANT. LIGHTS TURNED OFF PER PT REQUEST, NO FURTHER NEEDS IDENTIFIED. WILL CONTINUE TO MONITOR.
--- NOTE | 2020-08-08 03:10 | NUR ---
INFANT TO NURSERY VIA OPEN CRIB PER AVRILRN PER MOTHERS REQUEST.
--- NOTE | 2020-08-08 04:20 | NUR ---
CALLED TO ROOM BY PATIENT, PT REQUESTING PEANUT BUTTER CRACKERS. THIS RN BRINGS SUSAN CRACKERS AND TWO TUBS OF PEANUT BUTTER. PT STATES, "I DONT WANT THOSE, DONT YOU HAVE PEANUTBUTTER CRACKERS?" EXPLAINED THAT WE DID NOT, THAT SHE WOULD HAVE TO MAKE HER OWN. PT STATES, "I DONT WANT THOSE"
--- NOTE | 2020-08-08 04:50 | NUR ---
PT REQUESTS THAT HER CHICKEN BE HEATED UP AND A CUP OF ICE. NO FURTHER NEEDS IDENTIFIED, PT DENIES PAIN. WILL CONTINUE TO MONITOR.
--- NOTE | 2020-08-08 07:00 | NUR ---
REPORT TO AM SHIFT TO ASSUME PT CARE.
[2020-08-08 08:30] VITALS: BP 135/80
--- NOTE | 2020-08-08 08:30 | NUR ---
AM ASSESSMENT COMPLETED CHARTED. SALINE LOCK FROM LEFT WRIST REMOVED WITH CATH INTACT. BIKINI INCISION CLEAN AND DRY WITH BRETT IN PLACE. FUNDUS FIRM AT U/U WITH LIGHT BLEEDING NOTED. PT DENIES CLOTS WITH VOIDS. RATES PAIN AT 3/10. ELEVATED BLOOD PRESSURE OF 148/101 AT THIS TIME, WILL RECHECK IN 15-20 MINUTES. LARGE ICE WATER REQUESTED.
--- NOTE | 2020-08-08 08:42 | NUR ---
BLOOD PRESSURE REPEATED NOTED TO BE WNL CHARTED ON GRAPHIC. CALCIUM REDRAWN PER THIS RN AT THIS TIME AND TAKEN TO LAB.
--- NOTE | 2020-08-08 09:22 | NUR ---
CALLED TO ROOM VIA CALL LIGHT, PT SITTING IN BR ON TOILET, SHOWER RUNNING. REQUEST WASH CLOTHES AND TOWELS TO SHOWER. DENIES ADDITIONAL NEEDS. STEADY GAIT NOTED.
[2020-08-08] MEDS ORDERED: NORMODYNE / TR200 MG PO (10:22)
[2020-08-08] MEDS ORDERED: HYDROCODON-ACE1 EAC7 PO (10:22)
--- NOTE | 2020-08-08 10:30 | NUR ---
VERBAL AND WRITTEN DISCHARGE GONE OVER WITH PATIENT. SHE IS PROVIDED WITH WRITTEN SCIRPTS FOR NORCO 5/325MG AND LABETALOL 200MG. EXPRESSED TO PT THE IMPORTANCE OF GETTING HER BLOOD PRESSURE MED AND CONTINUE TO TAKE DIRECTED, WITH NEXT DOSE DUE AT 1500 TODAY. SHE STATES HER UNDERSTANDING AND DENIES QUESTIONS OR CONCERNS. TAKEN OUT BY WHEELCHAIR WITH SECURED IN TO CARRIER.
== END 2020-08-08 10:30 | disposition home or self-care (01) | DRG 784 ==
LOC: D.LD 06:24
PROVIDERS: ADMIT Student in an Organized Health Care Education/Training Program; ATTEND Student in an Organized Health Care Education/Training Program
PROC: 0UT70ZZ Resection of Bilateral Fallopian Tubes, Open Approach (ICD-10-PCS; 2020-08-05)
PROC: 0UT90ZL Resection of Uterus, Supracervical, Open Approach (ICD-10-PCS; 2020-08-05)
PROC: 0UT10ZZ Resection of Left Ovary, Open Approach (ICD-10-PCS; 2020-08-05)
PROC: 10D00Z1 Extraction of Products of Conception, Low, Open Approach (ICD-10-PCS; principal; 2020-08-05 16:30)
DX: O69.0XX0 Labor and delivery complicated by prolapse of cord, not applicable or unspecified (principal); O71.7 Obstetric hematoma of pelvis; Z3A.37 37 weeks gestation of pregnancy; Z37.0 Single live birth; O99.824 Streptococcus B carrier state complicating childbirth; O16.4 Unspecified maternal hypertension, complicating childbirth; O36.5930 Maternal care for other known or suspected poor fetal growth, third trimester, not applicable or unspecified; N83.7 Hematoma of broad ligament